=== PATIENT | female | born 1990 | race Caucasian/White ===

== ENCOUNTER 2023-03-02 02:14 | Emergency (ER) | payer BC ==
[2023-03-02] MEDS ORDERED: methylPREDNISolone Sod Succ/PF 125 MG/2 ML VIAL ONE (03:30)
== END 2023-03-02 03:54 | disposition home or self-care (01) ==
LOC: ERS 02:14
DX: L50.0 Allergic urticaria (principal)
CPT/HCPCS: 96372; 99282; J2930